=== PATIENT | female | born 1945 | race Hispanic/Latino ===

== ENCOUNTER 2020-10-09 06:37 | Observation (INO) | payer MEDICARE ==
[~2020-10-09] VITALS: Ht 144.8 cm; Wt 52.0 kg
[~2020-10-09 06:37] MED LIST: ACET-66 PO; ALEN70TA80 PO; ASPI1CPM8 PO; BISM262O28 PO; CALC-190 PO; DIPH25 PO; DOCU100C33 PO; FISH1CAP50 PO; GUAIFCF5L PO; IBUP-2784 PO; LACT10SO75 PO; LOPROX CREAM TP; MOM30 PO; MYLANTA PO; OXYB5TAB15 PO; SIMV-43 PO
[2020-10-09 09:35] LABS: HEMATOCRIT 34.7 % (36-48); MEAN CORPUSCULAR HEMOGLOBIN 28.9 pg (27.0-33.0); MEAN CORPUSCULAR HGB CONC 35.4 g/dL (32.0-36.0); MEAN CORPUSCULAR VOLUME 81.6 fL (79-99); RED BLOOD CELL COUNT(AUTO) 4.25 MIL/uL (4.00-5.50); RED CELL DISTRIBUTION WIDTH 12.1 % (11.0-15.5); WHITE BLOOD COUNT (AUTO) 7.8 K/uL (4.8-10.8)
[2020-10-09 09:49] LABS: ALBUMIN 3.7 g/dL (3.5-5.0); CARBON DIOXIDE 28 mmol/L (21-32); CREATININE 0.8 mg/dL (0.5-1.5); GLOMERULAR FILTR. RATE CALC 74 mL/min (>60); GLUCOSE,RANDOM 123 mg/dL (70-105); POTASSIUM 3.3 mmol/L (3.5-5.1); SODIUM SERUM 121 mmol/L (136-145); UREA NITROGEN, BLOOD 11 mg/dL (7-18)
[2020-10-09 09:52] LABS: INR 1.05 (0.85-1.15); PROTHROMBIN TIME 11.4 SEC (9.6-11.6)
[2020-10-09 09:53] LABS: PARTIAL THROMBOPLASTIN TIME 28.2 SEC (26.3-35.5)
[2020-10-09 09:54] LABS: CHLORIDE 85 mmol/L (101-111)
[2020-10-09 10:12] LABS: ALANINE AMINOTRANSFERASE 36 U/L (12-78); ASPARTATE AMINOTRANSFERASE 91 U/L (10-37); BILIRUBIN,TOTAL 0.6 mg/dL (0.2-1.0); MYOGLOBIN 1502 ng/mL (10-92); TOTAL PROTEIN, SERUM 7.7 g/dL (6.0-8.3); TROPONIN I < 0.04 ng/mL (0.00-0.06)
[2020-10-09 10:17] LABS: CREATINE KINASE, TOTAL 2670 U/L (21-232)
[2020-10-09] MEDS ORDERED: EXEM25TA PO (10:38)
[2020-10-09] MEDS ORDERED: OXCA300T28 PO (10:38)
[2020-10-09] MEDS ORDERED: LACT10SO5 PO (10:38)
[2020-10-09] MEDS ORDERED: FISH1CAP20 PO (10:38)
[2020-10-09] MEDS ORDERED: ONDANSETRON 4MG INJ IV PRN (11:30)
[2020-10-09] MEDS ORDERED: ACETAMINOPHEN 325 MG TAB PO PRN ×2 (11:30)
[2020-10-09] MEDS ORDERED: LACTULOSE 20 GM/30 ML UDCUP PO PRN (11:30)
[2020-10-09] MEDS: 0.9%NACL 1000ML 1,000 ML IV SCH ×5 (11:33→22:47)
[2020-10-09] MEDS ORDERED: LIDOCAINE HCL-MPF 1% 2ML VIAL IV PRN (12:00)
[2020-10-09 12:14] LABS: CHOLESTEROL 172 mg/dL (<200); HDL CHOLESTEROL 55 mg/dL (35-85); LDL DIRECT 99 mg/dL (0-99); TRIGLYCERIDES 39 mg/dL (30-200)
[2020-10-09 12:16] LABS: HEMOGLOBIN A1C 5.9 % (4.0-6.0)
[2020-10-09 14:43] VITALS: BP 153/77
[2020-10-09 20:00] VITALS: BP 125/61
[2020-10-09] MEDS: POTASSIUM CHLORIDE 10MEQ/100ML 100 ML IV PRN ×2 (21:07→22:45)
[2020-10-09 21:37] VITALS: BP 162/62
[2020-10-10 00:28] VITALS: BP 144/65
[2020-10-10 04:28] VITALS: BP 151/68
[2020-10-10 05:47] LABS: BASOPHILS % (AUTO) 0.3 % (0.0-5.0); EOSINOPHILS % (AUTO) 0.4 % (0.0-8.0); LYMPHOCYTES % (AUTO) 19.9 % (21.0-51.0); MEAN CORPUSCULAR HEMOGLOBIN 28.7 pg (27.0-33.0); MEAN CORPUSCULAR HGB CONC 34.9 g/dL (32.0-36.0); MEAN CORPUSCULAR VOLUME 82.4 fL (79-99); MONOCYTES % (AUTO) 11.2 % (3.0-13.0); NEUTROPHILS % (AUTO) 68.1 % (40.0-77.0); PLATELET COUNT (AUTO) 299 K/uL (130-400); RED BLOOD CELL COUNT(AUTO) 4.25 MIL/uL (4.00-5.50); RED CELL DISTRIBUTION WIDTH 12.4 % (11.0-15.5); WHITE BLOOD COUNT (AUTO) 7.2 K/uL (4.8-10.8)
[2020-10-10 06:27] LABS: CREATININE 0.7 mg/dL (0.5-1.5)
[2020-10-10 06:34] LABS: POTASSIUM 2.8 mmol/L (3.5-5.1)
[2020-10-10] MEDS: POTASSIUM CHLORIDE 10MEQ/100ML 100 ML IV PRN ×2 (06:37→08:19)
[2020-10-10] MEDS: 0.9%NACL 1000ML 1,000 ML IV SCH ×4 (07:00→20:20)
[2020-10-10 08:00] VITALS: BP 138/77
[2020-10-10] MEDS: PANTOPRAZOLE 40 MG/VIAL IVP SCH (08:19)
[2020-10-10] MEDS ORDERED: LIDOCAINE HCL-MPF 1% 2ML VIAL IV PRN (10:30)
[2020-10-10] MEDS ORDERED: POTASSIUM CHLORIDE 20MEQ/100ML 100 ML IV PRN (10:30)
[2020-10-10] MEDS ORDERED: POTASSIUM CHLORIDE 10% ELIXIR 20 MEQ/15 ML UDCUP PO SCH (11:30)
[2020-10-10 12:00] VITALS: BP 152/79
[2020-10-10 16:00] VITALS: BP 146/63
[2020-10-10 20:32] VITALS: BP 137/56
[2020-10-11 00:28] VITALS: BP 141/73
[2020-10-11] MEDS: 0.9%NACL 1000ML 1,000 ML IV SCH ×5 (02:49→16:50)
[2020-10-11 04:32] VITALS: BP 144/69
[2020-10-11 05:53] LABS: BASOPHILS % (AUTO) 0.4 % (0.0-5.0); EOSINOPHILS % (AUTO) 1.9 % (0.0-8.0); HEMATOCRIT 37.2 % (36-48); LYMPHOCYTES % (AUTO) 28.4 % (21.0-51.0); MEAN CORPUSCULAR HEMOGLOBIN 28.8 pg (27.0-33.0); MEAN CORPUSCULAR HGB CONC 33.6 g/dL (32.0-36.0); MEAN CORPUSCULAR VOLUME 85.7 fL (79-99); MONOCYTES % (AUTO) 9.1 % (3.0-13.0); NEUTROPHILS % (AUTO) 60.1 % (40.0-77.0); PLATELET COUNT (AUTO) 255 K/uL (130-400); RED BLOOD CELL COUNT(AUTO) 4.34 MIL/uL (4.00-5.50); WHITE BLOOD COUNT (AUTO) 7.7 K/uL (4.8-10.8)
[2020-10-11 06:38] LABS: CREATININE 0.6 mg/dL (0.5-1.5); MAGNESIUM 2.2 mg/dL (1.80-2.40); POTASSIUM 3.5 mmol/L (3.5-5.1)
[2020-10-11 08:00] VITALS: BP 110/89
[2020-10-11] MEDS: PANTOPRAZOLE 40 MG/VIAL IVP SCH (09:24)
[2020-10-11 11:39] VITALS: BP 136/73
[2020-10-11] MEDS ORDERED: AEC81 PO (15:17)
[2020-10-11 16:00] VITALS: BP 118/57
== END 2020-10-11 17:50 | disposition home or self-care (01) ==
LOC: EDH 06:37 → EDHIP 11:28 → 3BH 21:02
PROVIDERS: ADMIT Hospitalist; ATTEND Hospitalist
DX: G45.9 Transient cerebral ischemic attack, unspecified (principal); R62.59 Other lack of expected normal physiological development in childhood; I10 Essential (primary) hypertension; M62.82 Rhabdomyolysis; E86.1 Hypovolemia; E87.1 Hypo-osmolality and hyponatremia; E87.6 Hypokalemia; R53.81 Other malaise; M81.0 Age-related osteoporosis without current pathological fracture; E78.5 Hyperlipidemia, unspecified; F72 Severe intellectual disabilities; E78.00 Pure hypercholesterolemia, unspecified; G83.11 Monoplegia of lower limb affecting right dominant side; I63.9 Cerebral infarction, unspecified; K59.00 Constipation, unspecified; R29.707 NIHSS score 7; G51.0 Bell's palsy; F79 Unspecified intellectual disabilities; Z86.73 Personal history of transient ischemic attack (TIA), and cerebral infarction without residual deficits; Z79.82 Long term (current) use of aspirin
CPT/HCPCS: 36415; 70450; 70544; 70547; 70551; 71045; 74018; 80048; 80053; 80061; 82550; 82948; 83036; 83721; 83735; 83874; 83880; 84132; 84443; 84484; 85025; 85027; 85610; 85651; 85730; 92610; 93005; 93880; 96361; 96365; 96366; 96375; 96376; 97039; C9113; G0378; J3480; J3490; J7030